=== PATIENT | male | born 1955 | race Caucasian/White ===

== ENCOUNTER 2018-06-15 12:13 | Emergency (ER) | payer BC, OTHER ==
--- OUTSIDE RECORDS SUMMARY | 2018-06-15 12:15 | XMS REPORT ---
:1955 Author Organization eClinicalWorks Care Team Providers Name Role Phone Means Paddy Provider Role Unavailable Allergies, Adverse Reactions, Alerts Substance Reaction Event Type N.K.D.A. Info Not Available Non Drug Allergy Problems Problem Type Condition Code Onset Dates Condition Status Assessment Primary osteoarthritis of left knee M17.12 Active Problem Primary osteoarthritis of knees, M17.0 Active bilateral Problem Pain in joint of right knee M25.561 Active Problem Right sided sciatica M54.31 Active Assessment Right sided sciatica M54.31 Active Assessment Primary osteoarthritis of right M17.11 Active knee Assessment Pain in joint of right knee M25.561 Active Medications Medication Code Code Instructions Start End Status Dosage System Date Date Amlodipine Besylate [facility] 71908011339 10 MG Orally Active 1 tablet Once a day Hydrochlorothiazide [facility] 42834317490 25 MG Orally Active 1 tablet Once a day in the morning Meloxicam [facility] 28038524627 15 MG Orally May 10Aug Active 1 tablet Once a day 2017 Lisinopril [facility] 51740700329 40 MG Orally Active 1 tablet Once a day Results No Known Results Summary Purpose eClinicalWorks Submission
[2018-06-15 13:39] LABS: Absolute Lymphocytes (CBC) 1.2 K/uL (0.7-4.9); Absolute Monocytes 0.5 K/uL (0.1-1.3); Absolute Neutrophil 4.5 K/uL (1.8-8.0); Basophils % 0.7 % (0-1.3); Eosinophils % 2.8 % (0-4.4); Hematocrit 48.7 % (39.6-49.0); Lymphocytes % 18.6 % (15.3-44.8); MCH 30.6 pg (27.0-35.0); MCV 86.5 fL (80-100); MPV 7.9 fL (7.6-11.3); Monocytes % 8.2 % (3.3-12.3); RBC Red Blood Cell Count 5.63 M/uL (4.33-5.43)
[2018-06-15 13:40] LABS: Protime INR 0.97
--- NOTE | 2018-06-15 13:58 | RAD REPORT ---
EXAM DESCRIPTION: Sushant Single View06/15/2018 1:50 pm CLINICAL HISTORY: Chest pain COMPARISON: July 2016 FINDINGS: The lungs appear clear of acute infiltrate. The heart is normal size IMPRESSION: No acute abnormalities displayed
[2018-06-15 14:03] LABS: ALT/SGPT 43 U/L (12-78); AST/SGOT 36 U/L (15-37); Albumin 4.2 g/dL (3.4-5.0); Alkaline Phosphatase 62 U/L (45-117); BUN Blood Urea Nitrogen 15 mg/dL (7-18); Bicarbonate 28 mmol/L (21-32); Bilirubin Direct 0.1 mg/dL (0-0.2); Bilirubin Total 0.6 mg/dL (0.2-1.0); Glucose Level 97 mg/dL (74-106); Magnesium 2.4 mg/dL (1.8-2.4); NT PRO-BNP 27 pg/mL (<125); Potassium 3.9 mmol/L (3.5-5.1); Protein, Total 8.2 g/dL (6.4-8.2); Sodium Level 139 mmol/L (136-145); Troponin (Emerg Dept Use Only) < 0.02 ng/mL (0.0-0.045)
--- NOTE | 2018-06-15 14:43 | EDPHYS ---
Physician Documentation [facility] Name: Henrry Glez III Age: 63 yrs Sex: Male : 1955 Arrival Date: 06/15/2018 Time: 12:17 Bed 28 Private MD: Bernardo Navarrete ED Physician Petrona Law HPI: 06/15 13:25 This 63 yrs old Male presents to ER via Ambulatory with complaints of ma2 Palpitations. 13:25 The patient presents with a history of heart skipping beats. Context: The symptoms ma2 occur at rest. Onset: The symptoms/episode began/occurred suddenly, 4 hour(s) ago. Duration: The patient or guardian reports a single episode, that lasted 5 minute(s). Associated signs and symptoms: The patient has no apparent associated signs or symptoms, Pertinent positives: anxiety, Pertinent negatives: chest pain, cough, fever, lightheadedness, nausea, syncope, near-syncope, vertigo, vomiting. Severity of symptoms: At their worst the symptoms were mild in the emergency department the symptoms are unchanged. The patient has not experienced similar symptoms in the past. Historical: - Allergies: 12:27 No Known Allergies; jl7 - Home Meds: 12:27 lisinopril 40 mg oral tab 1 tab once daily [Active]; amlodipine 10 mg tab 1 tab once jl7 daily [Active]; hydrochlorothiazide 25 mg oral tab [Active]; Xanax 0.5 as needed [Active]; - PMHx: 12:27 Anxiety; Hypertension; jl7 - PSHx: 12:27 L achilles repair; R wrist; bone spurs; jl7 - Immunization history:: Adult Immunizations. - Social history:: Smoking status: Patient/guardian denies using tobacco, Patient uses alcohol, Couple glasses of wine daily. Patient/guardian denies using alcohol, street drugs, The patient lives with family. - Ebola Screening: : No symptoms or risks identified at this time. - Family history:: not pertinent. ROS: 13:25 Constitutional: Negative for fever, chills, and weight loss, Eyes: Negative for injury, ma2 pain, redness, and discharge, Neck: Negative for injury, pain, and swelling. 13:25 Cardiovascular: Positive for palpitations, Negative for chest pain, edema, orthopnea, paroxysmal nocturnal dyspnea, acute changes. 13:25 All other systems are negative. Exam: 13:25 Constitutional: This is a well developed, well nourished patient who is awake, alert, ma2 and in no acute distress. Chest/axilla: Normal chest wall appearance and motion. Nontender with no deformity. No lesions are appreciated. Cardiovascular: Regular rate and rhythm with a normal S1 and S2. No gallops, murmurs, or rubs. Normal PMI, no JVD. No pulse deficits. Respiratory: Lungs have equal breath sounds bilaterally, clear to auscultation and percussion. No rales, rhonchi or wheezes noted. No increased work of breathing, no retractions or nasal flaring. Abdomen/GI: Soft, non-tender, with normal bowel sounds. No distension or tympany. No guarding or rebound. No evidence of tenderness throughout. MS/ Extremity: Pulses equal, no cyanosis. Neurovascular intact. Full, normal range of motion. Neuro: Awake and alert, GCS 15, oriented to person, place, time, and situation. Cranial nerves II-XII grossly intact. Motor strength 5/5 in all extremities. Sensory grossly intact. Cerebellar exam normal. Normal gait. Vital Signs: 12:27 BP 133 / 90; Pulse 90; Resp 16 S; Temp 98.7(O); Pulse Ox 97% on R/A; Weight 97.52 kg jl7 (R); Height 5 ft. 9 in. (175.26 cm) (R); Pain 0/10; 13:43 BP 120 / 77; Pulse 61; Resp 20; Pulse Ox 94% on R/A; Pain 0/10; ed1 14:40 BP 130 / 89; Pulse 80; Resp 18; Pulse Ox 93% on R/A; Pain 0/10; ed1 12:27 Body Mass Index 31.75 (97.52 kg, 175.26 cm) jl7 MDM: 13:05 Patient medically screened. ma2 13:25 EVAN Risk Score: Not Applicable. Differential diagnosis: arrythmia, dehydration, stress ma2 disorder. 14:39 Data reviewed: vital signs, nurses notes, EMS record, lab test result(s), EKG, ma2 radiologic studies. Counseling: I had a detailed discussion with the patient and/or guardian regarding: the historical points, exam findings, and any diagnostic results supporting the discharge/admit diagnosis, the presence of at least one elevated blood pressure reading (>120/80) during this emergency department visit, the need for outpatient follow up. Medical screen evaluation completed. EMTALA emergency medical condition absent. ED course: patient had palpitation that resolved EKG wnl, no chest pain or angina equivalent .. he will f/u with his pcp for further eval . 06/15 13:24 Order name: Basic Metabolic Panel [facility] 06/15 13:24 Order name: CBC with Diff [facility] 06/15 13:24 Order name: LFT's [facility] 06/15 13:24 Order name: Magnesium [facility] 06/15 13:24 Order name: NT PRO-BNP [facility] 06/15 13:24 Order name: PT-INR [facility] 06/15 13:24 Order name: Troponin (emerg Dept Use Only) [facility] 06/15 13:41 Order name: CBC with Automated Diff; Complete Time: 14:34 EDMS 06/15 13:42 Order name: Protime (+INR); Complete Time: 14:34 EDMS 06/15 14:04 Order name: Basic Metabolic Panel; Complete Time: 14:34 EDMS 06/15 14:04 Order name: Liver (Hepatic) Function; Complete Time: 14:34 EDMS 06/15 14:04 Order name: Troponin (Emerg Dept Use Only); Complete Time: 14:34 EDMS 06/15 14:04 Order name: NT PRO-BNP; Complete Time: 14:34 EDMS 06/15 14:04 Order name: Magnesium; Complete Time: 14:34 EDMS 06/15 13:24 Order name: XRAY Chest (1 view) [facility] 06/15 13:24 Order name: EKG; Complete Time: 13:25 dc2 06/15 13:24 Order name: Cardiac monitoring; Complete Time: 13:39 dc2 06/15 13:24 Order name: EKG - Nurse/Tech; Complete Time: 13:39 dc2 06/15 13:24 Order name: IV Saline Lock; Complete Time: 13:39 dc2 06/15 13:24 Order name: Labs collected and sent; Complete Time: 13:39 dc2 06/15 13:24 Order name: O2 Per Protocol; Complete Time: 13:39 dc2 06/15 13:24 Order name: O2 Sat Monitoring; Complete Time: 13:39 ma2 06/15 13:59 Order name: RAD; Complete Time: 14:34 EDMS Administered Medications: No medications were administered Disposition: 06/15/18 14:41 Discharged to Home. Impression: Palpitations. - Condition is Stable. - Discharge Instructions: Holter Monitoring, Palpitations, [id number]. - Medication Reconciliation Form, Thank You Letter, Antibiotic Education, Prescription Opioid Use form. - Follow up: Private Physician; When: Tomorrow; Reason: Continuance of care. Signatures: Dispatcher [employer] EDMS Sophie Alarcon LVN DIRECT CARE PROVIDER ed1 Cesar Anderson RN RN jl7 Petrona Law MD MD ma2 Corrections: (The following items were deleted from the chart) 14:50 14:41 06/15/2018 14:41 Discharged to Home. Impression: Palpitations. Condition is ed1 Stable. Forms are Medication Reconciliation Form, Thank You Letter, Antibiotic Education, Prescription Opioid Use. Follow up: Private Physician; When: Tomorrow; Reason: Continuance of care. ma2
--- NOTE | 2018-06-15 14:43 | ER ---
Nurse's Notes [facility] Name: Henrry Glez III Age: 63 yrs Sex: Male : 1955 Arrival Date: 06/15/2018 Time: 12:17 Bed 28 Private MD: Bernardo Navarrete Diagnosis: Palpitations Presentation: 06/15 12:24 Presenting complaint: Patient states: Palpitations started this morning, got a little jl7 dizzy earlier, denies dizziness at this time. Transition of care: patient was not received from another setting of care. Onset of symptoms was June 15, 2018. Risk Assessment: Do you want to hurt yourself or someone else? Patient reports no desire to harm self or others. Initial Sepsis Screen: Does the patient meet any 2 criteria? No. Patient's initial sepsis screen is negative. Does the patient have a suspected source of infection? No. Patient's initial sepsis screen is negative. Care prior to arrival: None. 12:24 Method Of Arrival: Ambulatory jl7 12:24 Acuity: ALIN 3 jl7 Historical: - Allergies: 12:27 No Known Allergies; jl7 - Home Meds: 12:27 lisinopril 40 mg oral tab 1 tab once daily [Active]; amlodipine 10 mg tab 1 tab once jl7 daily [Active]; hydrochlorothiazide 25 mg oral tab [Active]; Xanax 0.5 as needed [Active]; - PMHx: 12:27 Anxiety; Hypertension; jl7 - PSHx: 12:27 L achilles repair; R wrist; bone spurs; jl7 - Immunization history:: Adult Immunizations. - Social history:: Smoking status: Patient/guardian denies using tobacco, Patient uses alcohol, Couple glasses of wine daily. Patient/guardian denies using alcohol, street drugs, The patient lives with family. - Ebola Screening: : No symptoms or risks identified at this time. - Family history:: not pertinent. Screenin:05 Abuse screen: Denies threats or abuse. Abuse screen: Denies injuries from another. ed1 Nutritional screening: No deficits noted. Tuberculosis screening: No symptoms or risk factors identified. Fall Risk None identified. Assessment: 13:05 General: Appears in no apparent distress. Behavior is calm, cooperative. Pain: Denies ed1 pain. 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 Denies weakness blurred vision numbness headache. Cardiovascular: Denies chest pain, Heart tones S1 S2 present. Respiratory: Airway is patent Respiratory effort is even, unlabored, Respiratory pattern is regular, symmetrical, Breath sounds are clear bilaterally. GI: Patient currently denies diarrhea, nausea, vomiting. : No signs and/or symptoms were reported regarding the genitourinary system. EENT: No signs and/or symptoms were reported regarding the EENT system. Derm: Skin is intact, Skin is pink, warm \T\ dry. Musculoskeletal: Circulation, motion, and sensation intact. 13:10 Reassessment: I agree with previous assessment. 13:43 Reassessment: Patient appears in no apparent distress at this time. Patient and/or ed1 family updated on plan of care and expected duration. Pain level reassessed. Patient is alert, oriented x 3, equal unlabored respirations, skin warm/dry/pink. Patient denies pain at this time. 14:40 Reassessment: Patient appears in no apparent distress at this time. No changes from ed1 previously documented assessment. Patient and/or family updated on plan of care and expected duration. Pain level reassessed. Patient is alert, oriented x 3, equal unlabored respirations, skin warm/dry/pink. Patient denies pain at this time. Vital Signs: 12:27 BP 133 / 90; Pulse 90; Resp 16 S; Temp 98.7(O); Pulse Ox 97% on R/A; Weight 97.52 kg [facility] (R); Height 5 ft. 9 in. (175.26 cm) (R); Pain 0/10; 13:43 BP 120 / 77; Pulse 61; Resp 20; Pulse Ox 94% on R/A; Pain 0/10; ed1 14:40 BP 130 / 89; Pulse 80; Resp 18; Pulse Ox 93% on R/A; Pain 0/10; ed1 12:27 Body Mass Index 31.75 (97.52 kg, 175.26 cm) [facility] ED Course: 12:17 Patient arrived in ED. mr 12:18 Bernardo Navarrete MD is Private Physician. mr 12:25 Triage completed. 7 12:27 Arm band placed on right wrist. [facility] 12:32 EKG completed in triage. Results shown to . lina 13:05 Petrona Law MD is Attending Physician. maGraham 13:05 Patient has correct armband on for positive identification. Placed in gown. Bed in low ed1 position. Call light in reach. Side rails up X 1. classroom monitor on. Pulse ox on. NIBP on. 13:30 Sophie Alarcon LVN is Primary Nurse. ed1 13:42 Initial lab(s) drawn, by ED staff, sent to lab. Inserted saline lock: 20 gauge in left ed1 antecubital area, using aseptic technique. Blood collected. 13:44 X-ray completed. Portable x-ray completed in exam room. Patient tolerated procedure jb2 well. 14:49 No provider procedures requiring assistance completed. IV discontinued, intact, ed1 bleeding controlled, No redness/swelling at site. Pressure dressing applied. Administered Medications: No medications were administered Outcome: 14:41 Discharge ordered by . mick 14:49 Discharged to home ambulatory. ed1 14:49 Condition: good 14:49 Discharge instructions given to patient, Instructed on discharge instructions, follow up and referral plans. Demonstrated understanding of instructions, follow-up care. 14:50 Patient left the ED. ed1 Signatures: Kuldeep Lacy DaviesChapito jb2 Sophie Alarcon LVN LVN ed1 Lissa Blanco, Cesar Ortiz RN, RN RN jl7 Petrona Law MD MD ma2
--- NOTE | 2018-06-15 16:00 | EKG ---
Test Date: 2018-06-15 Test Time: 12:32:45 Chairlift Operator: ALAN MEASUREMENT RESULTS: Intervals: Rate: 76 OK: 132 QRSD: 84 QT: 392 QTc: 441 [place]: P: 20 OK: 132 QRS: 12 T: 26 INTERPRETIVE STATEMENTS: Normal sinus rhythm Nonspecific T wave abnormality Abnormal ECG Compared to ECG 08/05/2016 16:32:08 No significant changes Electronically Signed On 06-15-18 15:59:04 DRUM MAKER by Marito Dotson
== END 2018-06-15 14:50 | disposition home or self-care (01) ==
LOC: ER 12:13
DX: R00.2 Palpitations (principal); I10 Essential (primary) hypertension; F41.9 Anxiety disorder, unspecified
CPT/HCPCS: 36415; 71045; 80048; 80076; 83735; 83880; 84484; 85025; 85610; 93005; 99284

== ENCOUNTER 2019-06-19 17:16 | Emergency (ER) | payer BC ==
--- OUTSIDE RECORDS SUMMARY | 2019-06-19 17:18 | XMS REPORT ---
[...] Status Dosage System Date Date Amlodipine Besylate [facility] 48585655768 10 MG Orally Active 1 tablet Once a day Hydrochlorothiazide [facility] 50562653585 25 MG Orally Active 1 tablet Once a day in the morning Meloxicam [facility] 98738205308 15 MG Orally May 10Aug Active 1 tablet Once a day 2017 Lisinopril [facility] 75178095745 40 MG Orally Active 1 tablet Once a day Results No Known Results Summary Purpose eClinicalWorks Submission
--- OUTSIDE RECORDS SUMMARY | 2019-06-19 17:18 | XMS REPORT ---
:1955 [facility] [address] [place] [address] Dr. Levine [address] [place] [id number] Care Team Providers Name Role Phone CECILY PULIDO Unavailable Unavailable Problems This patient has no known problems. Allergies, Adverse Reactions, Alerts This patient has no known allergies or adverse reactions. Medications This patient has no known medications. Results Test Description Test Time Test Comments Text Results Atomic Results Result Comments TISSUE EXAM 2019-05-11 11:18:00 Surgical Pathology Report Case: [id number] Authorizing Provider: Cecily Pulido Collected: 05/10/2019 0837 MD Julieta Ordering Location: [facility] Endoscopy Received: 05/10/2019 1204 Services Pathologist: Perla Wolf MD Specimen: Distal Esophagus, BX SCAR S/P ESD / WILSON'S A. 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 The current sampling shows reactive squamous epithelium with rare anucleated dyskeratotic squamous cells. Rare eosinophils are also seen. There is no evidence of dysplasia or malignancy.[id number] esophagus, biopsy scar, S/P ESD/Wilson'sThe specimen is received fixed in a container labeled with patient's demographic information and surgical accession number and consists of one fuentes-alfaro tissue 0.2 x 0.1 x 0.1 cm, submitted in block A1. HL/plPerformed. TISSUE EXAM 2019-01-22 17:34:00 Surgical Pathology Report Case: [id number] Authorizing Provider: AshokCecily Ashok Collected: 01/17/2019 0822 MD Julieta Ordering Location: [facility] Endoscopy Received: 01/17/2019 0918 Services Pathologist: Farnaz Carter MD Specimen: Biopsy, Gastroesophageal Junction, GE Junction lesion removed via ESD ESOPHAGUS, GASTROESOPHAGEAL JUNCTION, ENDOSCOPIC SUBMUCOSAL DISSECTION- POLYPOID HIGH GRADE DYSPLASIA ( 1 x 1 cm)- NEGATIVE FOR INVASIVE CARCINOMA- MARGINS, NEGATIVE FOR DYSPLASIA OR CARCINOMA- BACKGROUND WILSON ESOPHAGUS Signing Pathologist Direct Phone Line: [phone] signed by Farnaz Carter MD on 01/22/2019 at 5:34 [id number]'s esophagus with high-grade dysplasia A. Gastroesophageal junction The specimen is received one container labeled with the patient's information and consists of 3.5 cm from oral to anal x 5 cm from left to right alfaro fragment of mucosa showing a 1 x 1 cm polypoid nodule located at 1 cm from the oral margin, 2 cm from the anal margin, 0.1 cm from the closest right peripheral margin and 0.1 cm from the opposite margin. The specimen is serially sectioned from oral to anal and submitted in toto as follows: A1, slice 1; A2, slice 2; A3, slice 3; A4, slice 4, two sections, the thinner section has a red dot (#2); A5, slice 5 including one blue dot (#1); A6, slice 6, three sections; A7, slice 7, three sections to include one blue dot (#4) and one red dot (#5); A8, slice 8, three sections to include blue dot (#6) and red dot (#7); A9, slice 9, three sections; A10, slice 10, two sections; A11, slice 11; A12, slice 12. OK/ewMicroscopic examination is performed and the findings are incorporated in the diagnostic line.
[2019-06-19] MEDS ORDERED: MORPHINE 2 MG/ML SYR ONE ×2 (17:54→20:42)
[2019-06-19] MEDS ORDERED: NA CHLORIDE 0.9% 1,000 ML ONE (17:54)
[2019-06-19] MEDS ORDERED: ONDANSETRON 4 MG/2 ML VIAL ONE (17:54)
[2019-06-19 18:16] LABS: Absolute Lymphocytes (CBC) 1.5 K/uL (0.7-4.9); Basophils % 0.6 % (0-1.3); Lymphocytes % 14.5 % (15.3-44.8); MPV 8.4 fL (7.6-11.3); RBC Red Blood Cell Count 5.71 M/uL (4.33-5.43)
[2019-06-19 18:34] LABS: Albumin 4.2 g/dL (3.4-5.0); Bilirubin Direct 0.1 mg/dL (0-0.2); Bilirubin Total 0.5 mg/dL (0.2-1.0); Potassium 3.7 mmol/L (3.5-5.1); Protein, Total 8.1 g/dL (6.4-8.2)
--- NOTE | 2019-06-19 19:21 | RAD REPORT ---
EXAM DESCRIPTION: CT - Abdomen Pelvis W Contrast - 06/19/2019 6:50 pm CLINICAL HISTORY: LLQ pain COMPARISON: CT study June 2014 TECHNIQUE: Biphasic, helical CT imaging of the abdomen and pelvis was performed following 100 ml non -ionic IV contrast. No oral contrast. All CT scans are performed using dose optimization technique as appropriate and may include automated exposure control or mA/KV adjustment according to patient size. FINDINGS: Lung base atelectasis present with no acute finding. No pericardial thickening or effusion . The liver, spleen, and pancreas show no suspicious findings. Gallbladder and biliary tree are also wi thout suspicious finding. Symmetric renal function is seen with no hydronephrosis or suspicious renal mass. No pyelonephritis o r acute parenchymal process. No bladder abnormalities. No adrenal abnormalities. No gastric dilatation or wall thickening. Small bowel is unremarkable. Appendix is normal. From cecum through mid descending colon no acute findings seen. Distal descending colon shows 4- 5 centimeter l modesta segment of circumferential wall thickening. There is adjacent inflammatory stranding. Patient has diverticulosis. This is most likely acute diverticulitis. No abscess, free air or other surgically e mergent finding. No free air, free fluid or inflammatory stranding. No hernia, mass or bulky lympha denopathy. No suspicious bony findings. IMPRESSION: Acute diverticulitis in the distal descending colon. No abscess, free air or surgically emergent finding. Malignancy is not excluded but considered much less likely. Follow-up colonoscopy is needed following medical management.
--- NOTE | 2019-06-19 19:53 | EDPHYS ---
Physician Documentation [facility] Name: Henrry Glez III Age: 64 yrs Sex: Male : 1955 Arrival Date: 06/19/2019 Time: 17:18 Bed 19 Private MD: Bernardo Navarrete ED Physician Sd Morley HPI: 06/19 18:06 This 64 yrs old Male presents to ER via Ambulatory with complaints of pm1 Abdominal Pain. 18:06 The patient presents with abdominal pain in the left lower quadrant. pm1 18:06 Onset: The symptoms/episode began/occurred 1 day(s) ago. The symptoms do not radiate. pm1 Associated signs and symptoms: Pertinent negatives: nausea, vomiting, and diarrhea, chest pain, dysuria, fever, shortness of breath. The symptoms are described as sharp. Modifying factors: The symptoms are alleviated by nothing, the symptoms are aggravated by nothing. Severity of pain: in the emergency department the pain is actually worse. The patient has experienced a previous episode, approximately 5 years ago, dx diverticulitis. Historical: - Allergies: 17:26 No Known Allergies; sv - PMHx: 17:26 Anxiety; Hypertension; Lloyd's esophagus; sv - PSHx: 17:26 L achilles repair; R wrist; bone spurs; Lloyd's sx; sv - Immunization history:: Flu vaccine is not up to date. - Social history:: Smoking status: Patient uses tobacco products, cigars, Patient uses alcohol, on a daily basis. - Ebola Screening: : No symptoms or risks identified at this time. ROS: 18:06 Constitutional: Negative for fever, chills, and weight loss, Eyes: Negative for injury, pm1 pain, redness, and discharge, ENT: Negative for injury, pain, and discharge, Neck: Negative for injury, pain, and swelling, Cardiovascular: Negative for chest pain, palpitations, and edema, Respiratory: Negative for shortness of breath, cough, wheezing, and pleuritic chest pain. 18:06 Back: Negative for injury and pain, : Negative for injury, bleeding, discharge, and swelling, MS/Extremity: Negative for injury and deformity, Skin: Negative for injury, rash, and discoloration, Neuro: Negative for headache, weakness, numbness, tingling, and seizure. 18:06 Abdomen/GI: Positive for abdominal pain, Negative for nausea, vomiting, and diarrhea, constipation. Exam: 18:06 Constitutional: This is a well developed, well nourished patient who is awake, alert, pm1 and in no acute distress. Head/Face: Normocephalic, atraumatic. Eyes: Pupils equal round and reactive to light, extra-ocular motions intact. Lids and lashes normal. Conjunctiva and sclera are non-icteric and not injected. Cornea within normal limits. Periorbital areas with no swelling, redness, or edema. ENT: Nares patent. No nasal discharge, no septal abnormalities noted. Tympanic membranes are normal and external auditory canals are clear. Oropharynx with no redness, swelling, or masses, exudates, or evidence of obstruction, uvula midline. Mucous membranes moist. Neck: Trachea midline, no thyromegaly or masses palpated, and no cervical lymphadenopathy. Supple, full range of motion without nuchal rigidity, or vertebral point tenderness. No Meningismus. Chest/axilla: Normal chest wall appearance and motion. Nontender with no deformity. No lesions are appreciated. Cardiovascular: Regular rate and rhythm with a normal S1 and S2. No gallops, murmurs, or rubs. Normal PMI, no JVD. No pulse deficits. Respiratory: Lungs have equal breath sounds bilaterally, clear to auscultation and percussion. No rales, rhonchi or wheezes noted. No increased work of breathing, no retractions or nasal flaring. 18:06 Back: No spinal tenderness. No costovertebral tenderness. Full range of motion. Skin: Warm, dry with normal turgor. Normal color with no rashes, no lesions, and no evidence of cellulitis. MS/ Extremity: Pulses equal, no cyanosis. Neurovascular intact. Full, normal range of motion. 18:06 Abdomen/GI: Inspection: abdomen appears normal, Bowel sounds: normal, Palpation: soft, mild abdominal tenderness, in the left lower quadrant. 18:06 Neuro: Orientation: is normal, Motor: is normal, Sensation: is normal, no obvious gross deficits. Vital Signs: 17:26 BP 137 / 98; Pulse 88; Resp 22; Temp 97.8; Pulse Ox 97% ; Weight 89.81 kg; Height 5 ft. sv 9 in. (175.26 cm); Pain 6/10; 18:41 BP 121 / 81; Pulse 72; Resp 18; Pulse Ox 99% on R/A; Pain 7/10; em 19:53 BP 140 / 76; Pulse 93; Resp 17 S; Temp 98.4(O); Pulse Ox 97% on R/A; cc3 20:55 BP 144 / 88; Pulse 78; Resp 16 S; Pulse Ox 98% on R/A; Pain 0/10; cc3 17:26 Body Mass Index 29.24 (89.81 kg, 175.26 cm) sv MDM: 17:27 Patient medically screened. pm1 19:50 Data reviewed: vital signs. Data interpreted: Pulse oximetry: on room air is 99 %. pm1 Interpretation: normal. Counseling: I had a detailed discussion with the patient and/or guardian regarding: the historical points, exam findings, and any diagnostic results supporting the discharge/admit diagnosis, lab results, radiology results, the need for outpatient follow up, to return to the emergency department if symptoms worsen or persist or if there are any questions or concerns that arise at home. 06/19 17:38 Order name: Basic Metabolic Panel; Complete Time: 18:40 pm1 06/19 17:38 Order name: CBC with Diff; Complete Time: 18:29 pm1 06/19 17:38 Order name: Creatinine for Radiology; Complete Time: 18:41 pm1 06/19 17:38 Order name: Hepatic Function; Complete Time: 18:40 pm1 06/19 17:38 Order name: Lipase; Complete Time: 18:40 pm1 06/19 17:38 Order name: CT Abd/Pelvis - IV Contrast Only; Complete Time: 19:25 pm1 06/19 17:38 Order name: IV Saline Lock; Complete Time: 18:13 pm1 06/19 17:38 Order name: Labs collected and sent; Complete Time: 18:13 pm1 Administered Medications: 18:05 Drug: morphine 2 mg Route: IVP; Site: left antecubital; iw 18:41 Follow up: Response: No adverse reaction; Blood sugar is unchanged em 18:05 Drug: Zofran 4 mg Route: IVP; Site: left antecubital; iw 18:41 Follow up: Response: No adverse reaction em 18:07 Drug: NS 0.9% 1000 ml Route: IV; Rate: 1000 ml; Site: left antecubital; iw 19:15 Follow up: Response: No adverse reaction; IV Status: Completed infusion; IV Intake: cc3 1000ml 20:00 Drug: Flagyl 500 mg Volume: 100 ml; Route: IVPB; Rate: 200 ml/hr; Infused Over: 30 cc3 mins; Site: left antecubital; 21:00 Follow up: Response: No adverse reaction; IV Status: Completed infusion; IV Intake: cc3 100ml 20:00 Drug: LevaQUIN 750 mg Route: PO; cc3 21:00 Follow up: Response: No adverse reaction cc3 20:40 Drug: morphine 2 mg {Note: RASS 0.} Route: IVP; Site: left antecubital; cc3 21:00 Follow up: Response: No adverse reaction; Pain is decreased; RASS: Alert and Calm (0) cc3 Disposition: 06/20 07:27 Co-signature as Attending Physician, Sd Morley MD I agree with the assessment and kdr plan of care. Disposition: 06/19/19 19:52 Discharged to Home. Impression: Diverticulitis of large intestine without perforation or abscess without bleeding. - Condition is Stable. - Discharge Instructions: Clear Liquid Diet, Adult, Diverticulitis. - Prescriptions for Flagyl 500 mg Oral Tablet - take 1 tablet by ORAL route every 6 hours for 10 days; 40 tablet. Levaquin 750 mg Oral Tablet - take 1 tablet by ORAL route once daily for 10 days; 10 tablet. Tylenol- Codeine #3 300-30 mg Oral Tablet - take 2 tablets by ORAL route every 6 hours As needed; 20 tablet. Zofran 4 mg Oral Tablet - take 1 tablet by ORAL route every 8 hours As needed; 20 tablet. - Medication Reconciliation Form, Thank You Letter, Antibiotic Education, Prescription Opioid Use, Work release form form. - Follow up: Emergency Department; When: As needed; Reason: Worsening of condition. Follow up: Private Physician; When: 2 - 3 days; Reason: Recheck today's complaints, Continuance of care, Re-evaluation by your physician. - Problem is new. - Symptoms have improved. Signatures: Dispatcher [employer] Gisele Plunkett RN RN sv Rittger, Kevin, MD MD kdr Williams, Irene, RN RN iw Cole Franco, SHIRT FOLDER SHIRT FOLDER pm1 Ruchi Brown cc3 Hi Barlow AIRPORT CONTROL OPERATOR em Corrections: (The following items were deleted from the chart) 06/19 21:04 19:52 06/19/2019 19:52 Discharged to Home. Impression: Diverticulitis of large cc3 intestine without perforation or abscess without bleeding. Condition is Stable. Forms are Medication Reconciliation Form, Thank You Letter, Antibiotic Education, Prescription Opioid Use. Follow up: Emergency Department; When: As needed; Reason: Worsening of condition. Follow up: Private Physician; When: 2 - 3 days; Reason: Recheck today's complaints, Continuance of care, Re-evaluation by your physician. Problem is new. Symptoms have improved. pm1
--- NOTE | 2019-06-19 19:53 | ER ---
Nurse's Notes [facility] Name: Henrry Glez III Age: 64 yrs Sex: Male : 1955 Arrival Date: 06/19/2019 Time: 17:18 Bed 19 Private MD: Bernardo Navarrete Diagnosis: Diverticulitis of large intestine without perforation or abscess without bleeding Presentation: 06/19 17:23 Presenting complaint: Patient states: LLQ pain, "I feel bloated.", unable to pass gas, sv constipation x 1 day. Denies n/v/d. Took mag citrate earlier this morning. Transition of care: patient was not received from another setting of care. Onset of symptoms was June 18, 2019. Risk Assessment: Do you want to hurt yourself or someone else? Patient reports no desire to harm self or others. Initial Sepsis Screen: Does the patient meet any 2 criteria? RR > 20 per min. No. Patient's initial sepsis screen is negative. Does the patient have a suspected source of infection? Yes: Acute abdominal pain. Care prior to arrival: None. 17:23 Method Of Arrival: Ambulatory sv 17:23 Acuity: ALIN 3 sv Historical: - Allergies: 17:26 No Known Allergies; sv - PMHx: 17:26 Anxiety; Hypertension; Lloyd's esophagus; sv - PSHx: 17:26 L achilles repair; R wrist; bone spurs; Lloyd's sx; sv - Immunization history:: Flu vaccine is not up to date. - Social history:: Smoking status: Patient uses tobacco products, cigars, Patient uses alcohol, on a daily basis. - Ebola Screening: : No symptoms or risks identified at this time. Screenin:28 Abuse screen: Denies threats or abuse. Nutritional screening: No deficits noted. em Tuberculosis screening: No symptoms or risk factors identified. Fall Risk None identified. Assessment: 18:00 General: Appears in no apparent distress. distressed, Behavior is calm, cooperative, em Denies fever. Pain: Complains of pain in left lower quadrant Pain currently is 7 out of 10 on a pain scale. Pain began 1 day ago. Neuro: Level of Consciousness is awake, alert, obeys commands, Oriented to person, place, time, situation, Appropriate for age. Cardiovascular: Capillary refill < 3 seconds Patient's skin is warm and dry. Respiratory: Airway is patent Respiratory effort is even, unlabored, Respiratory pattern is regular, symmetrical. GI: Abdomen is round non-distended, Bowel sounds present X 4 quads. Abd is soft X 4 quads Abdomen is tender to palpation in left lower quadrant Reports constipation, Patient currently denies nausea, vomiting. Derm: Skin is intact, is healthy with good turgor, Skin is pink, warm \\T\\ dry. Musculoskeletal: Capillary refill < 3 seconds, Range of motion: intact in all extremities. 19:15 Reassessment: Patient appears in no apparent distress at this time. Patient and/or cc3 family updated on plan of care and expected duration. Pain level reassessed. Patient is alert, oriented x 3, equal unlabored respirations, skin warm/dry/pink. Received this male patient from morning shift [facility] as a case of abdominal pain but currently denies pain. With IV cannula gauge 20 at the left ACV with ongoing IV fluid of NS 1 liter bolus infusing well. Patient denies pain at this time. Patient states feeling better. Patient states symptoms have improved. General: Appears in no apparent distress. comfortable, Behavior is calm, cooperative, appropriate for age. Pain: Denies pain. Neuro: Level of Consciousness is awake, alert, obeys commands, Oriented to person, place, time, situation, Appropriate for age. Cardiovascular: Denies chest pain, Capillary refill < 3 seconds in bilateral fingers Patient's skin is warm and dry. Respiratory: Airway is patent Respiratory effort is even, unlabored, Respiratory pattern is regular, symmetrical. GI: Abdomen is round non-distended, Bowel sounds present X 4 quads. Abd is soft X 4 quads Abdomen is tender to palpation in left lower quadrant Patient currently denies nausea, vomiting. : No signs and/or symptoms were reported regarding the genitourinary system. EENT: No signs and/or symptoms were reported regarding the EENT system. Derm: Skin is intact, is healthy with good turgor, Skin is pink, warm \\T\\ dry. normal. Musculoskeletal: Circulation, motion, and sensation intact. Range of motion: intact in all extremities. 19:52 Reassessment: Patient ordered for discharge home but after the IV antibiotic. cc3 20:18 Reassessment: Patient appears in no apparent distress at this time. Patient and/or cc3 family updated on plan of care and expected duration. Pain level reassessed. Patient is alert, oriented x 3, equal unlabored respirations, skin warm/dry/pink. 21:00 Reassessment: Patient appears in no apparent distress at this time. Patient and/or cc3 family updated on plan of care and expected duration. Pain level reassessed. Patient is alert, oriented x 3, equal unlabored respirations, skin warm/dry/pink. IV antibiotic completed, KAVYA Franco discharged home the patient with prescriptions given. IV cannula removed and patient left ER vitally stable and ambulatory with his . No valuables left in the patient's room. Patient denies pain at this time. Patient states feeling better. Patient states symptoms have improved. Vital Signs: 17:26 BP 137 / 98; Pulse 88; Resp 22; Temp 97.8; Pulse Ox 97% ; Weight 89.81 kg; Height 5 ft. sv 9 in. (175.26 cm); Pain 6/10; 18:41 BP 121 / 81; Pulse 72; Resp 18; Pulse Ox 99% on R/A; Pain 7/10; em 19:53 BP 140 / 76; Pulse 93; Resp 17 S; Temp 98.4(O); Pulse Ox 97% on R/A; cc3 20:55 BP 144 / 88; Pulse 78; Resp 16 S; Pulse Ox 98% on R/A; Pain 0/10; cc3 17:26 Body Mass Index 29.24 (89.81 kg, 175.26 cm) sv ED Course: 17:18 Patient arrived in ED. mr 17:18 Bernardo Navarrete MD is Private Physician. mr 17:25 Triage completed. sv 17:26 Hi Barlow LVN is Primary Nurse. em 17:26 Arm band placed on. sv 17:27 Cole Franco NP is PHCP. pm1 17:27 Sd Morley MD is Attending Physician. pm1 17:28 Patient has correct armband on for positive identification. Placed in gown. Bed in low em position. Call light in reach. Adult w/ patient. 18:50 CT completed. Patient tolerated procedure well. Patient moved back from CT. mw3 18:50 CT Abd/Pelvis - IV Contrast Only In Process Unspecified. EDMS 21:00 No provider procedures requiring assistance completed. IV discontinued, intact, cc3 bleeding controlled, No redness/swelling at site. Pressure dressing applied. Administered Medications: 18:05 Drug: morphine 2 mg Route: IVP; Site: left antecubital; iw 18:41 Follow up: Response: No adverse reaction; Blood sugar is unchanged em 18:05 Drug: Zofran 4 mg Route: IVP; Site: left antecubital; iw 18:41 Follow up: Response: No adverse reaction em 18:07 Drug: NS 0.9% 1000 ml Route: IV; Rate: 1000 ml; Site: left antecubital; iw 19:15 Follow up: Response: No adverse reaction; IV Status: Completed infusion; IV Intake: cc3 1000ml 20:00 Drug: Flagyl 500 mg Volume: 100 ml; Route: IVPB; Rate: 200 ml/hr; Infused Over: 30 cc3 mins; Site: left antecubital; 21:00 Follow up: Response: No adverse reaction; IV Status: Completed infusion; IV Intake: cc3 100ml 20:00 Drug: LevaQUIN 750 mg Route: PO; cc3 21:00 Follow up: Response: No adverse reaction cc3 20:40 Drug: morphine 2 mg {Note: RASS 0.} Route: IVP; Site: left antecubital; cc3 21:00 Follow up: Response: No adverse reaction; Pain is decreased; RASS: Alert and Calm (0) cc3 Intake: 19:15 IV: 1000ml; Total: 1000ml. cc3 21:00 IV: 100ml; Total: 1100ml. cc3 Outcome: 19:52 Discharge ordered by MD. pm1 21:00 Discharged to home ambulatory, with family. cc3 21:00 Condition: stable 21:00 Discharge instructions given to patient, family, Instructed on discharge instructions, follow up and referral plans. medication usage, Demonstrated understanding of instructions, follow-up care, medications, Prescriptions given X 4. 21:04 Patient left the ED. cc3 Signatures: Dispatcher [employer] Gisele Plunkett RN RN sv Rivera, Mary mr Munoz, Hi, LAWYER PROBATE LAWYER PROBATE Shruti Chirinos RN RN iw Cole Franco, SLOT SHIFT MANAGER SLOT SHIFT MANAGER pm1 Emily Carrasco mw3 Ruchi Brown cc3 Corrections: (The following items were deleted from the chart) 17:27 17:23 Initial Sepsis Screen: Does the patient meet any 2 criteria? No. Patient's sv initial sepsis screen is negative. Does the patient have a suspected source of infection? Yes: Acute abdominal pain sv
[2019-06-19] MEDS ORDERED: METRONIDAZOLE 500mg IVPB 500 MG/100 ML BAG IV ONE (19:58)
[2019-06-19] MEDS ORDERED: levoFLOXacin 750 MG TAB ONE (19:58)
[2019-06-19 21:58] VITALS: BP 140/76; TEMP 98.4; O2SAT 97
== END 2019-06-19 21:04 | disposition home or self-care (01) ==
LOC: ER 17:16
DX: K57.32 Diverticulitis of large intestine without perforation or abscess without bleeding (principal); I10 Essential (primary) hypertension; F17.290 Nicotine dependence, other tobacco product, uncomplicated
CPT/HCPCS: 96365; 96361; 85025; 80048; 36415; 80076; 83690; 74177; 96375; 99284; Q9967; J2270 ×2; J7030; J2405

== ENCOUNTER 2022-04-08 12:04 | Emergency (ER) | payer OTHER, BC ==
--- OUTSIDE RECORDS SUMMARY | 2022-04-08 12:12 | XMS REPORT | Continuity of Care Document ---
:1955 Author Organization [facility] t Address [address] [place] [address] Care Team Providers Name Role Phone No, Pcp [facility] Primary Care Physician Unavailable Sharon Madsen Attending Clinician [phone] PEDRO PABLO_NELSON_Cale_Nora Attending Clinician Unavailable Aaron Adhikari Attending Clinician Unavailable CECILY PULIDO Attending Clinician Unavailable LORAINE_Cale_Nora Admitting Clinician Unavailable Physician, No Primary or Family Admitting Clinician Unavaila CECILY Moser Admitting Clinician Unavailable Payers Payer Name Policy Type Policy Number Effective Date Expiration Date Kamran duncan [place] [id number] 2021 [place] 00:00[place]00 [place] [id number] 2021 2022 [place] ([place]IC[place] 00:00:00 00:00:00 SUPPLEMENT) Problems Condition Condition Condition Status Onset Resolution Last Treating Co mments Source Name Details Category Date Date Treatment Clinician Date Pain in Pain in Diagnosis Active Commo n joint of joint of [facility] right knee right knee - [facility] Right Right Diagnosis Active Common sided sided [facility] sciatica sciatica [facility] Primary Primary Diagnosis Active Commo n osteoarthr osteoarthr Sp palua itis of itis of - [facility] right knee right knee [facility] Primary Primary Diagnosis Active Commo n osteoarthr osteoarthr Sp paula itis of itis of - [facility] left knee left knee [facility] Primary Primary Problem Active 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 - [facility] knees, knees, St bilateral bilateral [facility] Allergies, Adverse Reactions, Alerts Allergy Allergy Status Severity Reaction(s) Onset Inactive Treating Comm ents Source Name Type Date Date Clinician No Known DA Active U 2004-07 [facility] 08-03 [facility] 00 [facility] No Known DA Active U 2004-07 [facility] Contrast 08-03 [facility] All[facility] 00:[facility]: Regiona s 00 [facility] No Known DA Active U 2004-07 [facility] 08-03 [facility] Allergie 00:00: Regiona [facility] No Known DA Active U 2004-07 [facility] 08-03 [facility] Allergie 00:00: Regiona s 00 [facility] No Known DA Active U 2004-07 [facility] Other 08-03 [facility] Allergie 00[facility]00: [facility] 00 [facility] Social History Social Habit Start Date Stop Date Quantity Comments Source History SDOH [facility] Alcohol Frequency [facility] Center History SDOH [facility] Alcohol [facility] Drinks History SDOH [facility] Alcohol Binge [facility] [address] Alcohol intake 2019-05-10 2019-05-10 [facility] drink[facility]00 alcohol (finding) [facility] Alcohol Comment 2019-05-06 2019-05-[address] [facility] 00:[facility]00 00[facility]00 [facility] Tobacco Comment 2018-12-24 2018-12-[address] [facility]00 [facility] Tobacco use and 2018-12-24 2018-12-[address] [facility] exposure 00:00:00 00:00:00 [facility] Sex Assigned At [address] [facility] 00:[facility]00 00[facility]00:00 [facility] Smoking Status Start Date Stop Date Source Current some day smoker 2018-12-24 00:00:00 [facility] Medications Ordered Filled Start Stop Current Ordering Indication Dosage Frequency Signature Comments Components Source Medication Medication Date Date Medication? Clinician (SIG) Name Name amLODIPine 2018-07 Yes 10mg QD Take [address] (NORVASC) 0-15 by [facility] 10 MG 10:12: daily. Medical tablet 58 [place] lisinopril 2018-07 Yes 40mg QD Take [address] (PRINIVIL,Z 0-15 by mouth Luke s ESTRIL) 40 10:12: daily. Medic al MG tablet 58 [place] hydroCHLORO 2018-07 Yes 12.5mg QD Take 12.[address] thiazide 0-15 mg by [facility] (HYDRODIURI 10:12: mouth Medic al L) 12.5 MG 58 daily. Center tablet omeprazole 2018-07 Yes 40mg Q.5D Take [address] (PRILOSEC) 0-15 by mouth 2 Bernie es 40 MG 10:12: (two) Medical capsule 58 times Center daily. amLODIPine 2018-07 Yes 10mg QD Take [address] (NORVASC) 0-15 by [facility] 10 MG 10:12: daily. Medical tablet 58 [place] lisinopril 2018-07 Yes 40mg QD Take [address] (PRINIVIL,Z 0-15 by mouth Luke s ESTRIL) 40 10:12: daily. Medic al MG tablet 58 [place] hydroCHLORO 2018-07 Yes 12.5mg QD Take 12.[address] thiazide 0-15 mg by [facility]ukes (HYDRODIURI 10:12: mouth Medic al L) 12.5 MG 58 daily. Center tablet omeprazole 2018-07 Yes 40mg Q.5D Take [address] (PRILOSEC) 0-15 by mouth 2 Bernie es 40 MG 10:12: (two) Medical capsule 58 times Center daily. Meloxicam Meloxicam 2017-07 2019- No Paddy 1 tablet Common 0-15 02-12 [facility] 00:[facility]: [facility] 00 :00 [facility] Amlodipine Amlodipine Yes Paddy 1 tablet Common Besylate Besylate [facility] t [facility] Hydrochloro Hydrochloro Yes Paddy 1 tablet Common thiazide thiazide Means in the Spi rit morning [facility] Lisinopril Lisinopril Yes Paddy 1 tablet Common [facility] Procedures This patient has no known procedures. Plan of Care Planned Activity Planned Date Details Comments Source Future Scheduled 2022-03-27 INFLUENZA VACCINE (#1) [facility] 00:00:00 [code = INFLUENZA Medical Ce nter VACCINE (#1)] Future Scheduled 2022-03-27 INFLUENZA VACCINE (#1) [facility] 00:00:00 [code = INFLUENZA Medical Ce nter VACCINE (#1)] Future Scheduled 2021-07-[address] [facility] Test 00:00:00 (12+) [code = Medical Center DEPRESSION SCREENING (12+)] Future Scheduled 2021-07-27 FALLS RISK SCREENING [facility] Test 00:00:00 [code = FALLS RISK Medical C enter SCREENING] Future Scheduled 2021-07-[address] [facility] Test 00:00:00 (12+) [code = Medical Center DEPRESSION SCREENING (12+)] Future Scheduled 2021-07-27 FALLS RISK SCREENING [facility] Test 00:00:00 [code = FALLS RISK Medical C enter SCREENING] Future Scheduled 2006 SHINGLES VACCINES ([address] [facility] Test 00:00:00 2) [code = SHINGLES [facility] Center VACCINES (1 of 2)] Future Scheduled 2006 SHINGLES VACCINES ([address] [facility] Test 00:00:00 2) [code = SHINGLES [facility] Center VACCINES (1 of 2)] Future Scheduled 1991 Lipid panel (procedure) [facility] Test 00:00:00 [code = 71374333] Medical Ce nter Future Scheduled 1991 Lipid panel (procedure) [facility] Test 00:00:00 [code = 74017864] Medical Ce nter Future Scheduled 1975 DTAP/TDAP/TD VACCINES [facility] 00:00:00 (1 - Tdap) [code = Medical C enter DTAP/TDAP/TD VACCINES (1 - Tdap)] Future Scheduled 1975 DTAP/TDAP/TD VACCINES [facility] 00:00:00 (1 - Tdap) [code = Medical C enter DTAP/TDAP/TD VACCINES (1 - Tdap)] Future Scheduled 1974 HEPATITIS C SCREENING [facility] 00:00:00 [code = HEPATITIS C Medical Center SCREENING] Future Scheduled 1974 HEPATITIS C [facility]CRE[facility]ING [facility] 00:00:00 [code = HEPATITIS C Medical Center SCREENING] Future Scheduled 1962 PNEUMOCOCCAL 65+ YRS ([address] [facility] Test 00:00:00 - PCV) [code = Medical Cente r PNEUMOCOCCAL 65+ YRS (1 - PCV)] Future Scheduled 1962 PNEUMOCOCCAL 65+ YRS ([address] [facility] Test 00:00:00 - PCV) [code = Medical Cente r PNEUMOCOCCAL 65+ YRS (1 - PCV)] Future Scheduled 1955 COVID-19 VACCINE (#1) [facility] 00:00:00 [code = COVID-[address] VACCINE (#1)] Future Scheduled 1955 COVID-19 VACCINE (#1) [facility] 00:00:00 [code = COVID-[address] VACCINE (#1)] Future Scheduled 1956 CT Colonography (combo) [facility] Test 00:00:00 [code = CT Colonography [facility] (combo)] Future Scheduled 1956 Screening for malignant [facility] Test 00:00:00 neoplasm of colon Medical Ce nter (procedure) [code = 303287322] Future Scheduled 1956 Screening for malignant [facility] Test 00:00:00 neoplasm of colon Medical Ce nter (procedure) [code = 930510279] Future Scheduled 1956 Screening for malignant [facility] Test 00:00:00 neoplasm of colon Medical Ce nter (procedure) [code = 581279028] Future Scheduled 1956 Screening for malignant [facility] Test 00:00:00 neoplasm of colon Medical Ce nter (procedure) [code = 200625513] Future Scheduled 1955 Sigmoidoscopy [code = [facility] 00:00:00 Sigmoidoscopy] Medical Cente r Future Scheduled 1956 CT Colonography (combo) [facility] Test 00:00:00 [code = CT Colonography [facility] (combo)] Future Scheduled 1956 Screening for malignant [facility] Test 00:00:00 neoplasm of colon Medical Ce nter (procedure) [code = 842918772] Future Scheduled 1956 Screening for malignant [facility] Test 00:00:00 neoplasm of colon Medical Ce nter (procedure) [code = 598391904] Future Scheduled 1956 Screening for malignant [facility] Test 00:00:00 neoplasm of colon Medical Ce nter (procedure) [code = 188546692] Future Scheduled 1956 Screening for malignant [facility] Test 00:00:00 neoplasm of colon Medical Ce nter (procedure) [code = 654458509] Future Scheduled 1955 Sigmoidoscopy [code = [facility] 00:00:00 Sigmoidoscopy] Medical Cente r Encounters Start End Encounter Admission Attending Care Care Encounter Source Date/Time Date/Time Type Type Clinicians Facility Department ID 2022-03-25 2022-03-25 Outpatient Tong, PRIV PRIV [id number] 00:00:00 00:00:00 Sharon [id number] 2022-03-24 2022-03-24 Outpatient GC_PFP_Tong PRIV PRIV [id number] [facility] 00:00:00 00:00:00 _B [id number] Medica l 2022-02-24 2022-02-24 Outpatient GC_PFP_Tong PRIV PRIV [id number] [facility] 00:00:00 00:00:00 _B [id number] Medica l 2022-02-13 2022-02-13 Outpatient GC_PFP_Tong PRIV PRIV [id number] [facility] 01:21:00 01:21:00 _B [id number] Medica l 2022-01-16 2022-01-16 Outpatient GC_PFP_Tong PRIV PRIV 230 [id number] [facility] 01:20:00 01:20:00 _B [id number] Medica l 2021-12-21 2021-12-21 Outpatient GC_PFP_Tong PRIV PRIV 230 [id number] [facility] 06:33:00 06:33:00 _B [id number] Medica l 2021-12-20 2021-12-20 Outpatient GC_PFP_Tong PRIV PRIV [id number] [facility] 05:16:00 05:16:00 _B [id number] Medica l 2021-12-20 2021-12-20 Outpatient Tong, PRIV PRIV [id number] 00:00:00 00:00:00 Sharon [id number] 2021-08-22 2021-08-22 Outpatient GC_PFP_Tong PRIV PRIV 230 [id number] [facility] 06:16:00 06:16:00 _B [id number] Medica l 2021-07-20 2021-07-21 Emergency EM Adhikari, HCAVA ER [id number] [facility] 15:32:00 02:30:[address] 2021-07-08 2021-07-08 Outpatient GC_PFP_Tong PRIV PRIV 230 [id number] [facility] 03:49:00 03:49:00 _B [id number] Medica l 2021-07-05 2021-07-05 Outpatient GC_PFP_Tong PRIV PRIV 230 [id number] [facility] 01:56:00 01:56:00 _B [id number] Medica l 2021-07-05 2021-07-05 Outpatient Cale PRIV PRIV [id number] 00:00:00 00:00:00 Sharon [id number] 2021-06-12 2021-06-12 Outpatient GC_PFP_Cale PRIV PRIV 230 [id number] [facility] 03:30:00 03:30:00 _B [id number] Medica l 2018-05-10 2018-05-10 [id number] [facility] 11:00:00 11:00:00 [facility] Results Test Description Test Time Test Comments Results Result Comments Source CBC W/AUTO DIFF 2021-07-20 19:52:00 Test Item Value Reference Range Interpretation Comme nts WHITE BLOOD CELL (test code = WBC) 8.6 K/mm3 4.8-10.8 N RED BLOOD CELL (test code = RBC) 5.27 M/mm3 4.2-5.4 N HEMOGLOBIN (test code = HGB) 15.3 gm/DL 13.5-17.5 N HEMATOCRIT (test code = HCT) 46.4 % 37.1-51.5 N MEAN CELL VOLUME (test code = MCV) 88.0 fL 81-99 N MEAN CELL HGB (test code = MCH) 29.0 pg 27-31 N MEAN CELL HGB CONCETRATION (test code = MCHC) 33.0 gm/dL 33-37 N RED CELL DISTRIBUTION WIDTH (test code = RDW) 13.8 % 11.5-14. 5 N PLATELET COUNT (test code = PLT) 196 X10(3) 130-400 N MEAN PLATELET VOLUME (test code = MPV) 9.1 fL 9.4-12.4 L NEUTROPHIL % (test code = NT%) 86.8 % 51.5-79.7 H IMMATURE GRANULOCYTE % (test code = IG%) 0.300 % 0.108-0.322 N LYMPHOCYTE % (test code = LY%) 7.3 % 14-40 L MONOCYTE % (test code = MO%) 5.2 % 4.0-10.2 N EOSINOPHIL % (test code = EO%) 0.1 % 0-4.1 N BASOPHIL % (test code = BA%) 0.3 % 0.1-0.7 N NUCLEATED RBC % (test code = NRBC%) 0.0 % 0-0 N NEUTROPHIL # (test code = NT#) 7.5 K/mm3 2.5-8.6 N IMMATURE GRANULOCYTE # (test code = IG#) 0.030 K/mm3 0.0052-0.0224 H LYMPHOCYTE # (test code = LY#) 0.6 K/mm3 1.1-3.6 L MONOCYTE # (test code = MO#) 0.5 K/mm3 0.3-0.9 N EOSINOPHIL # (test code = EO#) 0.01 # 0.0-0.4 N BASOPHIL # (test code = BA#) 0.03 K/mm3 0.0-0.2 N NUCLEATED RBC # (test code = NRBC#) 0.00 K/mm3 0.00-0.20 N HEPATIC FUNCTION [id number] 19:28:00 Test Item Value Reference Range Interpretation Comments TOTAL PROTEIN (test 7.7 g/dL 6.4-8.2 N code = PROT) ALBUMIN (test code = 4.0 g/dL 3.4-5.0 N ALB) GLOBULIN (test code = 3.7 gm/dL 2.3-3.5 H GLOB) ALBUMIN/GLOBULIN 1.1 1.5-2.2 L RATIO (test code = A/G) BILIRUBIN TOTAL (test 0.8 mg/dL 0.0-1.1 N code = BILT) BILIRUBIN DIRECT <0.1 mg/dL 0.05-0.3 N (test code = BILD) BILIRUBIN INDIRECT 0.7 mg/dL 0.0-0.6 H (test code = BILIND) SGOT/AST (test code = 35 U/L 15-37 N Report ing units: AST) International U nits/L SGPT/ALT (test code = 24 U/L 10-30 N Report ing units: ALT) International U nits/L ALKALINE PHOSPHATASE 69 U/L 45-117 N TOTAL (test code = ALKP) [id number] 19:28:00 Test Item Value Reference Range Interpretation Comments LIPASE (test code = 77 U/L 73-393 N Reportin g units: LIP) International U nits/L [id number] 19:28:00 Test Item Value Reference Range Interpretation Comments TROPONIN-I 7.5 pg/mL 3.0-78.5 N An elevated tro ponin value (test code = alone is not bay fficient TROPI) todiagnose a my ocardial infarction. Rat her, the patient'sclinic al presentation (history, physi mildred exam) and ECGshould be us ed in conjuction with troponin in the diagnostice valuation of suspected myoca ridal infarction. A s erialsampling protocol is rec ommended to facilitate heid entification of temporal change s in troponin levelscharacter istic of [place]. BASIC METABOLIC [id number] 19:28:00 Test Item Value Reference Range Interpretation Comments SODIUM (test code = 136 mmol/L 136-145 N NA) POTASSIUM (test code = 4.5 mmol/L 3.5-5.1 N K) CHLORIDE (test code = 104 mmol/L 98-113 N CL) CARBON DIOXIDE (test 28 mmol/L 21-32 N code = CO2) GLUCOSE (test code = 104 mg/dL 65-99 H GLU) BLOOD UREA NITROGEN 14 mg/dL 7-18 N (test code = BUN) GLOMERULAR FILTRATION 80 Report ing units: RATE (test code = GFR) ml/mi n/1.73m\S\2 (Modified MDRD Formula)If age < 18 years, GFR is n ot applicable. KD/ DOQI Clinical Practi ce Guidelines: Sta ge 1: Kidney damage w/normal or inc reased GFR >90Stage 2: Kidney damage w /mild decrease in GFR 60 - 89Stage 3: Mode rate decrease in GFR 30 - 59Stage 4: Regina re decrease in GFR 15 - 29Stage 5: Kidn ey failure < 15 (o r dialysis) CREATININE (test code 1.0 mg/dL 0.6-1.0 N = CREAT) CALCIUM (test code = 8.8 mg/dL 7.8-10.9 N CA) COVID 19 Asymptomatic IH [id number] 19:19:00 Test Item Value Reference Interpretation Comments Range COVID 19 Presumptive Presump.Neg Results are for the Asymptomatic IH Negative identificati on of AG (test code = ZPVG-JhN-1et cleocapsid COVNONPUIAG) protein antigen . Antigen is generallydetect able in upper respirato ry specimens durin g the acutephase of infection. Posi tive results indicat e the presenceof syed l antigens, but c linical correlation wit h patienthistory and other diagnosti c information is necessary todet ermine infection statu s. Positive result s do not rule outbacteri al infection or co-infection wi th other viruses. Theage nt detected may no t be the definite cause of disease.Laborat ories within the [facility] and its territoriesare required to report all p ositive results to the[facility] public health authorit ies. Negative result s should be treated as presumptive andconfirmed wi th molecular assay , if necessary for patientmanageme nt. Negative result s do not rule out COVID- 19 andshould not b e used as the sole bas is for treatment orpat ient management deci sions, including infec tion controldecision s. Negative result s should be considered i n thecontext of a patient's recen t exposures, hist ory andpresence of clinical signs and sympt oms consistent withCOVID-19. T he Leigh SARS Antigen FI A is intended for us e by trainedclinical personnel and individuals tra ined in point of carese ttings. The Leigh SARS Antigen HOSEA is only for use underthe Food a nd Drug Administration' s Emergency UseAuthosuzi n. LOT # [id number].DATE 09/16/22PROCEDURAL CONTROL ACCEPTABLE Y/N YTISSUE EXAM 2019-05-11 11:18:00Surgical Pathology Report Case: [id number] Authorizing Provider: Cecily Pulido Collected: 05/10/2019 0837 MD Julieta Ordering Location: [facility] Endoscopy Received: 05/10/2019 1204 Services Pathologist: Perla Wolf MD Specimen: Distal Esophagus, BX SCAR S/P ESD / WILSON'S A. 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 The current sampling shows reactive squamous epithelium with rare anucleated dyskeratotic squamous cells. Rare eosinophils are also seen. There is no evidence of dysplasia or malignancy.[id number] esophagus, biopsy scar, S/P ESD/Wilson'sThe specimen is received fixed in a container labeled with patient's demographic information and surgical accession number andconsists of one fuentes-alfaro tissue 0.2 x 0.1 x 0.1 cm, submitted in block A1. HL/plPerformed. TISSUE [id number] 17:34:00Surgical Pathology Report Case: [id number] Authorizing Provider: Cecily Pulido Collected: 01/17/2019 0822 MD Julieta Ordering Location: [facility] Endoscopy Received: 01/17/2019 0918 Services Patho logist: Farnaz Carter MD Specimen: Biopsy, Gastroesophageal Junction, GE Junction lesion removedvia ESD ESOPHAGUS, GASTROESOPHAGEAL JUNCTION, ENDOSCOPIC SUBMUCOSAL DISSECTION- POLYPOID HIGH GRADE DYSPLASIA ( 1 x 1 cm)- NEGATIVE FOR INVASIVE CARCINOMA- MARGINS, NEGATIVE FOR DYSPLASIA OR CARCINOMA-BACKGROUND WILSON ESOPHAGUS Signing Pathologist Direct Phone Line: [phone] signed by Farnaz Carter MD on 01/22/2019 at 5:34 [id number]'s esophagus with high-grade dysplasia A.Gastroesophageal junction The specimen is received one container labeled with the patient's information and consists of 3.5 cm from oral to anal x 5 cm from left to right alfaro fragment of mucosa showinga 1 x 1 cm polypoid nodule located at 1 cm from the oral margin, 2 cm from the anal margin, 0.1 cm from the closest right peripheral margin and 0.1 cm from the opposite margin. The specimen is seriallysectioned from oral to anal and submitted in toto as follows: A1, slice 1; A2, slice 2; A3, slice 3;A4, slice 4, two sections, the thinner section has a red dot (#2); A5, slice 5 including one blue dot (#1); A6, slice 6, three sections; A7, slice 7, three sections to include one blue dot (#4) and onered dot (#5); A8, slice 8, three sections to include blue dot (#6) and red dot (#7); A9, slice 9, three sections; A10, slice 10, two sections; A11, slice 11; A12, slice 12. OK/ewMicroscopic examinationis performed and the findings are incorporated in the diagnostic line.
[2022-04-08 12:57] LABS: Absolute Lymphocytes (CBC) 1.3 K/uL (0.7-4.9); Hematocrit 46.5 % (39.6-49.0); Lymphocytes % 22.3 % (15.3-44.8); MCV 85.6 fL (80-100); MPV 7.5 fL (7.6-11.3); RBC Red Blood Cell Count 5.44 M/uL (4.33-5.43)
[2022-04-08 13:04] LABS: Protime INR 1.04
[2022-04-08 13:16] LABS: Albumin 4.1 g/dL (3.4-5.0); Bilirubin Direct 0.2 mg/dL (0-0.2); Bilirubin Total 0.7 mg/dL (0.2-1.0); Magnesium 2.2 mg/dL (1.8-2.4); Protein, Total 7.8 g/dL (6.4-8.2); Troponin High Sensitivity 5.5 pg/mL (<58.9)
[2022-04-08 13:20] LABS: SARS-CoV-2 Antigen Rapid Res Negative (Negative)
--- NOTE | 2022-04-08 13:20 | RAD REPORT ---
EXAM DESCRIPTION: CT - Head Brain Wo Cont - 04/08/2022 1:10 pm CLINICAL HISTORY: elevated blood pressure, headache Headache, drowsiness, hypertension COMPARISON: HEAD BRAIN W O CONTRAST dated 07/17/2014 TECHNIQUE: All CT scans are performed using dose optimization technique as appropriate and may inclu de automated exposure control or mA/KV adjustment according to patient size. FINDINGS: No intracranial hemorrhage, hydrocephalus or extra-axial fluid collection.No areas of brai n edema or evidence of midline shift. The paranasal sinuses and mastoids are clear. The calvarium is intact. IMPRESSION: No acute intracranial abnormality.
[2022-04-08] MEDS ORDERED: LORazepam 2 MG/ML VIAL ONE ×3 (13:21→15:10)
[2022-04-08] MEDS ORDERED: HYDRALAZINE HCL 20 MG/ML VIAL ONE (13:21)
[2022-04-08] MEDS ORDERED: cloNIDine HCL 0.1 MG TAB ONE (14:14)
[2022-04-08] MEDS ORDERED: ONDANSETRON 4 MG/2 ML VIAL ONE (14:15)
[2022-04-08] MEDS ORDERED: MORPHINE 4 MG/ML SYR ONE (14:15)
--- NOTE | 2022-04-08 15:49 | RAD REPORT ---
EXAM DESCRIPTION: RAD - Chest Single View - 04/08/2022 3:40 pm CLINICAL HISTORY: weakness Chest pain. COMPARISON: Chest Pa And Lat (2 Views) dated 08/18/2018; Chest Single View dated 06/15/2018; Chest Si ngle View dated 08/05/2016; CHEST SINGLE VIEW dated 07/17/2014 FINDINGS: Portable technique limits examination quality. The lungs are grossly clear. Mildly elevated left hemidiaphragm. The heart is normal in size. No disp laced fractures. IMPRESSION: No acute intrathoracic process suspected.
--- NOTE | 2022-04-08 16:03 | ER ---
Nurse's Notes [facility] Name: Henrry Glez III Age: 66 yrs Sex: Male : 1955 Arrival Date: 04/08/2022 Time: 12:05 Bed 3 Private MD: Diagnosis: Hypertension;Headache;Insomnia Presentation: 04/08 12:12 Chief complaint: Patient states: I have had blurry vision, high blood pressure, and a bm7 pain in my neck for the last week and I can not sleep at all. Coronavirus screen: At this time, the client does not indicate any symptoms associated with coronavirus-19. Ebola Screen: No symptoms or risks identified at this time. Initial Sepsis Screen: Does the patient meet any 2 criteria? No. Patient's initial sepsis screen is negative. Does the patient have a suspected source of infection? No. Patient's initial sepsis screen is negative. Risk Assessment: Do you want to hurt yourself or someone else? Patient reports no desire to harm self or others. Onset of symptoms is unknown. 12:12 Method Of Arrival: Ambulatory bm7 12:12 Acuity: ALIN 2 bm7 Triage Assessment: 12:13 General: Appears in no apparent distress. uncomfortable, Behavior is anxious. Pain: bm7 Complains of pain in neck. EENT: No deficits noted. No signs and/or symptoms were reported regarding the EENT system. Neuro: No deficits noted. Level of Consciousness is awake, alert, obeys commands, Oriented to person, place, time, situation, Cone Classifier Tender are equal bilaterally Moves all extremities. Gait is steady, Speech is normal, Facial symmetry appears normal, Pupils are PERRLA. Neuro: Reports blurred vision. Cardiovascular: Chest pain is denied. Respiratory: No deficits noted. GI: No deficits noted. No signs and/or symptoms were reported involving the gastrointestinal system. : No deficits noted. No signs and/or symptoms were reported regarding the genitourinary system. Derm: No deficits noted. No signs and/or symptoms reported regarding the dermatologic system. Musculoskeletal: Reports pain in neck. Historical: - Allergies: 12:13 No Known Allergies; bm7 - Home Meds: 12:13 amlodipine 10 mg tab 1 tab once daily [Active]; hydrochlorothiazide 25 mg Oral tab bm7 [Active]; lisinopril 40 mg Oral tab 1 tab once daily [Active]; Xanax 0.5 as needed [Active]; - PMHx: 12:13 Anxiety; Lloyd's Esophagus; Hypertension; bm7 - PSHx: 12:13 None; bm7 - Immunization history:: Adult Immunizations up to date, Client reports having NOT received the Covid vaccine. - Social history:: Smoking status: Patient denies any tobacco usage or history of. Patient uses smokes cigars . Screenin:34 Abuse screen: Denies threats or abuse. Denies injuries from another. Nutritional eh3 screening: No deficits noted. Tuberculosis screening: No symptoms or risk factors identified. Fall Risk None identified. Assessment: 12:34 General: Appears distressed, uncomfortable, Behavior is cooperative, appropriate for eh3 age, anxious. Pain: Complains of pain in back of neck Pain does not radiate. Pain currently is 4 out of 10 on a pain scale. Quality of pain is described as aching, squeezing, Pain began 2 weeks ago Is intermittent, Alleviated by rest, Aggravated by repositioning, Noted to be resistant to movement. Neuro: Neuro: Level of Consciousness is awake, alert, obeys commands, Oriented to person, place, time, situation, Speech is normal, Pupils are PERRLA. Cardiovascular: Capillary refill < 3 seconds Patient's skin is warm and dry. Respiratory: Airway is patent Respiratory effort is even, unlabored. GI: No signs and/or symptoms were reported involving the gastrointestinal system. : No signs and/or symptoms were reported regarding the genitourinary system. EENT: No signs and/or symptoms were reported regarding the EENT system. Derm: No signs and/or symptoms reported regarding the dermatologic system. Musculoskeletal: Circulation, motion, and sensation intact. Range of motion: intact in all extremities. 14:41 Reassessment: Pt displaying signs of anxiety - states medicine is making anxiety worse. ld1 Continuously staring at monitor states "look at the monitor my HR is 73 now - the morphine and ativan is not working." Notified ERP, See MAR for orders. Went into room to give ativan to pt - pt refused extra dose. States "I refuse to take that, it is not working. " Told to get into her purse and give him his perscription Xanax. Notified ERP of conversation. 15:33 Reassessment: Patient and/or family updated on plan of care and expected duration. Pain eh3 level reassessed. Patient is alert, oriented x 3, equal unlabored respirations, skin warm/dry/pink. States neck pain is "a lot better". Currently eating food that brought for him. Seems to be in good spirits. 16:20 Reassessment: Patient appears in no apparent distress at this time. Patient and/or ld1 family updated on plan of care and expected duration. Pain level reassessed. Pt reports feeling better. Patient denies pain at this time. Patient states feeling better. Vital Signs: 12:12 BP 208 / 95; Pulse 72; Resp 16; Temp 98.4(TE); Pulse Ox 100% on R/A; Weight 89.81 kg bm7 (R); Height 5 ft. 9 in. (175.26 cm); Pain 3/10; 12:34 BP 199 / 94; Pulse 58; Resp 22; Pulse Ox 98% on R/A; eh3 13:00 BP 196 / 95; Pulse 61; Resp 21; Pulse Ox 100% on R/A; eh3 13:30 BP 193 / 88; Pulse 61; Resp 21; Pulse Ox 99% on R/A; eh3 13:59 BP 198 / 88; Pulse 66; Resp 18; Pulse Ox 99% on R/A; tp1 14:20 BP 174 / 91; Pulse 64; Resp 18; Pulse Ox 97% on R/A; eh3 15:30 BP 158 / 90; Pulse 90; Resp 23; Pulse Ox 98% on R/A; eh3 16:00 BP 112 / 71; Pulse 76; Resp 22; Pulse Ox 96% on R/A; eh3 12:12 Body Mass Index 29.24 (89.81 kg, 175.26 cm) bm7 ED Course: 12:05 Patient arrived in ED. rg4 12:13 Triage completed. bm7 12:13 Arm band placed on right wrist. bm7 12:30 Hans Kay PA is PHCP. [facility] 12:30 Jabier Ivey MD is Attending Physician. [facility] 12:34 Jade Vazquez, SAIDA is Primary Nurse. 3 12:34 Patient has correct armband on for positive identification. Bed in low position. Call eh3 light in reach. Side rails up X2. Adult w/ patient. Client placed on continuous cardiac and pulse oximetry monitoring. NIBP monitoring applied. Door closed. Noise minimized. Lights dimmed. Warm blanket given. 12:34 No provider procedures requiring assistance completed. Inserted saline lock: 20 gauge eh3 in right antecubital area, using aseptic technique. Blood collected. 12:52 SARS RAPID Sent. eh3 12:52 Basic Metabolic Panel Sent. eh3 12:52 CBC with Diff Sent. eh3 12:52 LFT's Sent. eh3 12:52 Magnesium Sent. eh3 12:52 NT PRO-BNP Sent. eh3 12:52 PT-INR Sent. eh3 12:52 Troponin HS Sent. eh3 12:57 Basic Metabolic Panel Sent. eh3 12:57 CBC with Diff Sent. eh3 12:57 LFT's Sent. eh3 12:57 Magnesium Sent. eh3 12:57 NT PRO-BNP Sent. eh3 12:57 PT-INR Sent. eh3 12:57 Troponin HS Sent. eh3 13:12 CT Head Brain wo Cont In Process Unspecified. EDMS 15:41 XRAY Chest (1 view) In Process Unspecified. EDMS 16:20 IV discontinued, intact, bleeding controlled, No redness/swelling at site. ld1 Administered Medications: 13:10 Drug: hydrALAZINE 10 mg Route: IVP; Site: right antecubital; eh3 14:33 Follow up: Response: Blood pressure is lowered eh3 13:10 Drug: Ativan (LORazepam) 0.5 mg Route: IVP; Site: right antecubital; eh3 14:33 Follow up: Response: Anxiety unchanged eh3 14:09 Drug: cloNIDine 0.1 mg Route: PO; ld1 14:33 Follow up: Response: Blood pressure is lowered eh3 14:10 Drug: morphine 4 mg Route: IVP; Infused Over: 4 mins; Site: right antecubital; ld1 14:33 Follow up: Response: Pain is unchanged, physician notified eh3 14:10 Drug: Zofran (Ondansetron) 4 mg Route: IVP; Site: right antecubital; ld1 14:33 Follow up: Response: No adverse reaction 3 14:43 Not Given (Patient Refused): Ativan (LORazepam) 1 mg IVP once ld1 15:02 Drug: Ativan (LORazepam) 1 mg Route: IVP; Site: right antecubital; ld1 16:12 Follow up: Response: Anxiety decreased eh3 Medication: 12:34 VIS not applicable for this client. eh3 Outcome: 16:03 Discharge ordered by . bryant 16:19 Discharged to home ambulatory. ld1 16:19 Condition: stable 16:19 Discharge instructions given to patient, Instructed on discharge instructions, follow up and referral plans. medication usage, Demonstrated understanding of instructions, follow-up care, medications. 16:21 Patient left the ED. ld1 Signatures: Dispatcher [employer] EDMS Hans Kay PA PA jmm Garcia, Rubi rg4 Josefina Wise, RN RN bm7 Aliya Zhang RN RN ld1 Valarie Jean Baptiste, RN RN tp1 Jade Vazquez RN RN eh3
--- NOTE | 2022-04-08 16:03 | EDPHYS ---
Physician Documentation [facility] Name: Henrry Glez III Age: 66 yrs Sex: Male : 1955 Arrival Date: 04/08/2022 Time: 12:05 Bed 3 Private MD: Jabier Valdes HPI: 04/08 12:30 This 66 yrs old Male presents to ER via Ambulatory with complaints of High Blood [facility] Pressure, Blurred Vision, Neck Pain, <24hrs Old. 12:30 The patient has elevated blood pressure and discovered this at [facility]. Onset: The symptoms/episode began/occurred 1 month(s) ago. This is a 66-year-old male with history of anxiety, hypertension that presents emerged department with difficulty sleeping over the past month. Patient states he noticed his blood pressure was elevated approximately 2 weeks ago after she developed headache, blurred vision when he drives, increased anxiety. Patient states he takes lisinopril 40 mg daily without relief of blood pressure. Denies chest pain or shortness of breath. Historical: - Allergies: 12:13 No Known Allergies; bm7 - Home Meds: 12:13 amlodipine 10 mg tab 1 tab once daily [Active]; hydrochlorothiazide 25 mg Oral tab bm7 [Active]; lisinopril 40 mg Oral tab 1 tab once daily [Active]; Xanax 0.5 as needed [Active]; - PMHx: 12:13 Anxiety; Lloyd's Esophagus; Hypertension; bm7 - PSHx: 12:13 None; bm7 - Immunization history:: Adult Immunizations up to date, Client reports having NOT received the Covid vaccine. - Social history:: Smoking status: Patient denies any tobacco usage or history of. Patient uses smokes cigars . ROS: 12:30 Constitutional: Negative for fever, chills, and weight loss, Cardiovascular: Negative jmm for chest pain, palpitations, and edema, Respiratory: Negative for shortness of breath, cough, wheezing, and pleuritic chest pain. 12:30 Neuro: Positive for headache. 12:30 All other systems are negative. Exam: 12:30 Constitutional: This is a well developed, well nourished patient who is awake, alert, jmm and in no acute distress. Head/Face: atraumatic. Eyes: EOMI, no conjunctival erythema appreciated ENT: Moist Mucus Membranes Neck: Trachea midline, Supple Chest/axilla: Normal chest wall appearance and motion. Cardiovascular: Regular rate and rhythm. No edema appreciated Respiratory: Normal respirations, no respiratory distress appreciated Abdomen/GI: Non distended Back: Normal ROM Skin: General appearance color normal MS/ Extremity: Moves all extremities, no obvious deformities appreciated, no edema noted to the lower extremities Neuro: Awake and alert Psych: Behavior is normal, Mood is normal, Patient is cooperative and pleasant Vital Signs: 12:12 BP 208 / 95; Pulse 72; Resp 16; Temp 98.4(TE); Pulse Ox 100% on R/A; Weight 89.81 kg bm7 (R); Height 5 ft. 9 in. (175.26 cm); Pain 3/10; 12:34 BP 199 / 94; Pulse 58; Resp 22; Pulse Ox 98% on R/A; eh3 13:00 BP 196 / 95; Pulse 61; Resp 21; Pulse Ox 100% on R/A; eh3 13:30 BP 193 / 88; Pulse 61; Resp 21; Pulse Ox 99% on R/A; eh3 13:59 BP 198 / 88; Pulse 66; Resp 18; Pulse Ox 99% on R/A; tp1 14:20 BP 174 / 91; Pulse 64; Resp 18; Pulse Ox 97% on R/A; eh3 15:30 BP 158 / 90; Pulse 90; Resp 23; Pulse Ox 98% on R/A; eh3 16:00 BP 112 / 71; Pulse 76; Resp 22; Pulse Ox 96% on R/A; eh3 12:12 Body Mass Index 29.24 (89.81 kg, 175.26 cm) bm7 MDM: 12:40 Patient medically screened. [facility] 16:01 Data reviewed: vital signs, nurses notes. Counseling: I had a detailed discussion with [facility] the patient and/or guardian regarding: the historical points, exam findings, and any diagnostic results supporting the discharge/admit diagnosis, lab results, radiology results, the need for outpatient follow up, to return to the emergency department if symptoms worsen or persist or if there are any questions or concerns that arise at home. 16:01 ED course: Patient is alert nontoxic in appearance NAD. Patient states feeling much jmm better. Advised to follow-up with cardiology for further evaluation. Patient otherwise given strict return precautions. Patient understood and agrees plan of care.. 04/08 12:30 Order name: Basic Metabolic Panel; Complete Time: 13:21 [facility] 04/08 12:30 Order name: CBC with Diff; Complete Time: 13:03 [facility] 04/08 12:30 Order name: LFT's; Complete Time: 13:21 [facility] 04/08 12:30 Order name: Magnesium; Complete Time: 13:21 [facility] 04/08 12:30 Order name: NT PRO-BNP; Complete Time: 13:21 [facility] 04/08 12:30 Order name: PT-INR; Complete Time: 13:12 [facility] 04/08 12:30 Order name: Troponin HS; Complete Time: 13:21 [facility] 04/08 12:30 Order name: XRAY Chest (1 view); Complete Time: 15:55 [facility] 04/08 12:31 Order name: SARS RAPID; Complete Time: 13:26 [facility] 04/08 12:50 Order name: CT Head Brain wo Cont; Complete Time: 13:21 [facility] 04/08 12:30 Order name: EKG; Complete Time: 12:31 [facility] 04/08 12:30 Order name: Cardiac monitoring; Complete Time: 12:57 [facility] 04/08 12:30 Order name: EKG - Nurse/Tech; Complete Time: 12:31 [facility] 04/08 12:30 Order name: IV Saline Lock; Complete Time: 12:57 [facility] 04/08 12:30 Order name: Labs collected and sent; Complete Time: 12:57 [facility] 04/08 12:30 Order name: O2 Per Protocol; Complete Time: 12:57 [facility] 04/08 12:30 Order name: O2 Sat Monitoring; Complete Time: 12:57 [facility] 04/08 13:58 Order name: Vital Signs; Complete Time: 13:58 jm Administered Medications: 13:10 Drug: hydrALAZINE 10 mg Route: IVP; Site: right antecubital; eh3 14:33 Follow up: Response: Blood pressure is lowered eh3 13:10 Drug: Ativan (LORazepam) 0.5 mg Route: IVP; Site: right antecubital; eh3 14:33 Follow up: Response: Anxiety unchanged eh3 14:09 Drug: cloNIDine 0.1 mg Route: PO; ld1 14:33 Follow up: Response: Blood pressure is lowered eh3 14:10 Drug: morphine 4 mg Route: IVP; Infused Over: 4 mins; Site: right antecubital; ld1 14:33 Follow up: Response: Pain is unchanged, physician notified eh3 14:10 Drug: Zofran (Ondansetron) 4 mg Route: IVP; Site: right antecubital; ld1 14:33 Follow up: Response: No adverse reaction eh3 14:43 Not Given (Patient Refused): Ativan (LORazepam) 1 mg IVP once ld1 15:02 Drug: Ativan (LORazepam) 1 mg Route: IVP; Site: right antecubital; ld1 16:12 Follow up: Response: Anxiety decreased eh3 Disposition Summary: 04/08/22 16:03 Discharge Ordered Location: Home [facility] Condition: Stable [facility] Diagnosis - Hypertension [facility] - Headache [facility] - Insomnia [facility] Followup: [facility] - With: Private Physician - When: 2 - 3 days - Reason: Recheck today's complaints, Continuance of care, Re-evaluation by your physician Discharge Instructions: - Discharge Summary Sheet [facility] - Hypertension, Adult [facility] - Insomnia [facility] Forms: - Medication Reconciliation Form [facility] - Thank You Letter [facility] - Antibiotic Education [facility] - Prescription Opioid Use [facility] Prescriptions: - amlodipine 5 mg Oral tablet - take 1 tablet by ORAL route once daily for 30 days; 30 tablet; Refills: 0, [facility] Product Selection Permitted - Hydroxyzine HCl 50 mg Oral Tablet - take 1 tablet by ORAL route every 8 hours As needed; 20 tablet; Refills: 0, [facility] Product Selection Permitted Signatures: Dispatcher [employer] Hans Hernadez PA PA [facility] Josefina Wise RN RN bm7 Aliya Zhang RN RN ld1 Jade Vazquez RN RN eh3
--- NOTE | 2022-04-09 17:12 | EKG ---
Test Date: 2022-04-08 Test Time: 12:23:27 [employer] Driver: AURA MEASUREMENT RESULTS: Intervals: Rate: 72 DC: 122 QRSD: 78 QT: 422 QTc: 462 [place]: P: 0 DC: 122 QRS: 18 T: 27 INTERPRETIVE STATEMENTS: Normal sinus rhythm Nonspecific T wave abnormality Prolonged QT Abnormal ECG Compared to ECG 06/15/2018 12:32:45 Prolonged QT interval now present T-wave abnormality still present Electronically Signed On 04-09-22 17:06:59 CDT by Marito Dotson
== END 2022-04-08 16:21 | disposition home or self-care (01) ==
LOC: ER 12:04
DX: I10 Essential (primary) hypertension (principal); R51.9 Headache, unspecified; G47.00 Insomnia, unspecified; F41.9 Anxiety disorder, unspecified; F17.290 Nicotine dependence, other tobacco product, uncomplicated; Z20.822 Contact with and (suspected) exposure to COVID-19
CPT/HCPCS: 93005; 85025; 80048; 36415; 83735; 85610; 80076; 84484; 83880; 70450; 71045; 96375; 96374; 99284; 87811; J0360; J2405